=== PATIENT | female | born 1995 | race Caucasian/White ===

== ENCOUNTER 2018-05-23 20:18 | Emergency (ER) | payer OTHER ==
[2018-05-23 22:09] LABS: ABSOLUTE BASOPHILS # (AUTO) 0.1 10^3/uL (0.0-0.2); ABSOLUTE LYMPHOCYTES (AUTO) 2.7 10^3/uL (0.5-4.7); ABSOLUTE MONOCYTES (AUTO) 0.5 10^3/uL (0.1-1.4); ABSOLUTE NEUT (AUTO) 5.9 10^3/uL (1.7-8.2); BASOPHILS % (AUTO) 0.8 % (0-2); EOSINOPHILS % (AUTO) 0.3 % (0-6); HEMATOCRIT 41.4 % (36.0-47.0); HEMOGLOBIN 14.5 g/dL (12.0-15.5); LYMPHOCYTES % (AUTO) 29.3 % (13-45); MEAN CORPUSCULAR HEMOGLOBIN 31.4 pg (27.0-33.4); MEAN CORPUSCULAR HGB CONC 35.1 g/dL (32.0-36.0); MEAN CORPUSCULAR VOLUME 89 fl (80-97); MONOCYTES % (AUTO) 5.2 % (3-13); PLATELET COUNT 221 10^3/uL (150-450); RED BLOOD COUNT 4.63 10^6/uL (3.72-5.28); RED CELL DISTRIBUTION WIDTH 12.2 % (11.5-14.0); SEGMENTED NEUTROPHILS % (AUTO) 64.4 % (42-78); TOTAL CELLS COUNTED % (AUTO) 100 %; WHITE BLOOD COUNT 9.2 10^3/uL (4.0-10.5)
[2018-05-23 22:27] LABS: APPEARANCE,URINE CLOUDY; BILIRUBIN,URINE NEGATIVE (NEGATIVE); COLOR,URINE YELLOW; GLUCOSE, URINE NEGATIVE (NEGATIVE); KETONES,URINE 20 mg/dL (NEGATIVE); LEUKOCYTE ESTERASE,URINE NEGATIVE (NEGATIVE); NITRITE,URINE NEGATIVE (NEGATIVE); PROTEIN,URINE 30 mg/dL (NEGATIVE); URINE SPECIFIC GRAVITY 1.031; UROBILINOGEN,URINE NEGATIVE mg/dL (<2.0)
[2018-05-23 22:44] LABS: ALANINE AMINOTRANSFERASE 26 U/L (9-52); ALBUMIN 4.9 g/dL (3.5-5.0); ALKALINE PHOSPHATASE 43 U/L (38-126); ANION GAP 15 (5-19); ASPARTATE AMINO TRANSFERASE 27 U/L (14-36); BILIRUBIN,DIRECT 0.3 mg/dL (0.0-0.4); BILIRUBIN,TOTAL 0.9 mg/dL (0.2-1.3); BLOOD UREA NITROGEN 13 mg/dL (7-20); CALCIUM 9.8 mg/dL (8.4-10.2); CARBON DIOXIDE 19 mmol/L (22-30); CHLORIDE 111 mmol/L (98-107); GLUCOSE 79 mg/dL (75-110); POTASSIUM 4.1 mmol/L (3.6-5.0); SODIUM 145.4 mmol/L (137-145); TOTAL PROTEIN 7.8 g/dL (6.3-8.2)
--- NOTE | 2018-05-23 22:55 | ER Document Report ---
ED General - General Chief Complaint: Abdominal Pain Stated Complaint: STOMACH PAIN Time Seen by Provider: 05/23/18 21:39 Notes: Patient is a 22-year-old female without past medical history who presents with lower abdominal pain radiating into her rectum and vagina that started just prior to arrival. The patient states that the pain started after having sexual intercourse and has persisted since that time. She describes this as a throbbing, aching, constant pain worsened by standing or moving. Lying flat improves the pain. The patient reports that she has had similar symptoms after sexual intercourse in the past but has never lasted for this long. She denies any vaginal bleeding, vaginal discharge, dysuria, upper abdominal pain or vomiting. She has not seen her general doctor or [employer] regarding today's concerns. She does currently take oral control pills. No history of abdominal surgeries in the past. TRAVEL OUTSIDE OF THE [place] IN LAST 30 DAYS: No - Related Data Allergies/Adverse Reactions: No Known Allergies Allergy (Verified 05/23/18 20:21) Past Medical History - General Information source: Patient - Social History Smoking Status: Never Smoker Frequency of alcohol use: None Drug Abuse: None Lives with: Spouse/Significant other Family History: Reviewed & Not Pertinent Review of Systems - Review of Systems Notes: Constitutional: Negative for fever. HENT: Negative for sore throat. Eyes: Negative for visual changes. Cardiovascular: Negative for chest pain. Respiratory: Negative for shortness of breath. Gastrointestinal: Positive for lower abdominal pain Genitourinary: Positive for vaginal pain Musculoskeletal: Negative for back pain. Skin: Negative for rash. Neurological: Negative for headaches, weakness or numbness. 10 point ROS negative except as marked above and in HPI. Physical Exam - Vital signs Vitals: Temp Pulse Resp BP Pulse Ox 98.5 F 78 18 129/69 H 100 05/23/18 20:30 05/23/18 20:30 05/23/18 20:30 05/23/18 20:30 05/23/18 20:30 Interpretation: Normal Notes: PHYSICAL EXAMINATION: GENERAL: Appears moderately uncomfortable but in no acute distress HEAD: Atraumatic, normocephalic. EYES: Pupils equal round and reactive to light, extraocular movements intact, sclera anicteric, conjunctiva are normal. ENT: nares patent, oropharynx clear without exudates. Moist mucous membranes. NECK: Normal range of motion, supple without lymphadenopathy LUNGS: Breath sounds clear to auscultation bilaterally and equal. No wheezes rales or rhonchi. HEART: Regular rate and rhythm without murmurs ABDOMEN: Soft, mild bilateral adnexal and suprapubic abdominal discomfort but no other localized areas of tenderness, normoactive bowel sounds. No guarding, no rebound. No masses appreciated. EXTREMITIES: Normal range of motion, no pitting or edema. No cyanosis. NEUROLOGICAL: No focal neurological deficits. Moves all extremities spontaneously and on command. PSYCH: Normal mood, normal affect. SKIN: Warm, Dry, normal turgor, no rashes or lesions noted. Course - Re-evaluation Re-evalutation: 05/23/18 22:54 Patient presents with lower abdominal discomfort as well as pain in her vagina and rectum that started while having sexual intercourse. Abdominal examination is notable for mild tenderness to the bilateral adnexas and suprapubic region but is otherwise completely benign. Labs, vitals completely unremarkable. Clinical history appears to be most consistent with a pelvic floor muscle spasm and patient does report that she has had recurrent history of similar symptoms during vaginal intercourse in the past although the pain does not typically last this long. An ovarian cyst with associated rupture would also be a consideration although would not typically expect this to cause of rectal or vaginal pain. Her low clinical suspicion for a torsed ovary given minimal pain at time of presentation as well as patient complaining of the dominance of the pain being in her vagina and rectum. She denies any vaginal bleeding. Will obtain transvaginal ultrasound to further clarify if this remains unremarkable plan for outpatient follow-up with [employer]. 05/24/18 02:10 Transvaginal ultrasound shows trace free pelvic fluid but no evidence of ovarian torsion, ovarian cysts or TOA. Patient's pain has improved after NSAIDs. I have recommended close outpatient follow-up with [employer]. At this time will discharge with return precautions and follow-up recommendations. Verbal discharge instructions given a the bedside and opportunity for questions given. Medication warnings reviewed. Patient is in agreement with this plan and has verbalized understanding of return precautions and the need for primary care follow-up in the next 24-72 hours. - Vital Signs Vital signs: Temp Pulse Resp BP Pulse Ox 97.9 F 57 L 16 125/79 99 05/24/18 02:42 05/24/18 02:42 05/24/18 02:42 05/24/18 02:42 05/24/18 02:42 - Laboratory Result Diagrams: 05/23/18 22:00 05/23/18 22:00 Laboratory results interpreted by me: 05/23/18 05/23/18 22:00 22:10 Sodium 145.4 H Chloride 111 H Carbon Dioxide 19 L Urine Protein 30 H Urine Ketones 20 H - Diagnostic Test Radiology reviewed: Reports reviewed Discharge - Discharge Clinical Impression: Pelvic pain, Lower abdominal pain, Dyspareunia Condition: Good Disposition: HOME, SELF-CARE Additional Instructions: You were seen today for pelvic pain and pain with intercourse. Your ultrasound does not show any acute abnormalities and her labs are otherwise normal. I would avoid having sexual intercourse until you have seen your [employer]. Your symptoms seem to be most consistent with pelvic floor muscle spasms. Please return if you have worsening of your pain, fever, vomiting, heavy vaginal bleeding, vaginal discharge, or any other symptoms that are worrisome to you. For your pain: Take ibuprofen 600 mg and acetaminophen 1000 mg every 6 hours together as needed for pain. Referrals: OSCAR ROBERSON MD [Primary Care Provider] - Follow up as needed
--- NOTE | 2018-05-24 01:52 | RADIOLOGY REPORT (SQ) ---
EXAM DESCRIPTION: CLINICAL HISTORY: 22 years Female bilateral adnexal pain COMPARISON: None. TECHNIQUE: Transvaginal duplex imaging performed to evaluate the pelvis. FINDINGS: Uterus measures 7.4 x 5.5 x 4.8 cm. Endometrial thickness 1.5 cm. Uterus is retroverted. Cervix measures 3.2 cm and appears closed. Right ovary measures 3.8 x 3.1 cm with normal blood flow. Left ovary measures 2.4 x 4.4 cm with normal blood flow. Free fluid in the pelvis. IMPRESSION: Small amount of free fluid which is nonspecific No additional evidence of acute process
[2018-05-24] MEDS ORDERED: ACETAMINOPHEN 325 MG TABLET PO ONE (02:10)
[2018-05-24] MEDS ORDERED: KETOROLAC TROMETHAMINE 60 MG/2 ML SDV IM ONE (02:10)
[2018-05-24 02:46] VITALS: BP 125/79
== END 2018-05-24 02:46 | disposition home or self-care (01) ==
LOC: ER 20:18
DX: N94.10 Unspecified dyspareunia (principal); R18.8 Other ascites; R10.2 Pelvic and perineal pain; K62.89 Other specified diseases of anus and rectum; Z79.3 Long term (current) use of hormonal contraceptives
CPT/HCPCS: 99284; 96372; 36415; 83690; 84703; 85025; 80053; 81001; 76830; 93976; J1885

== ENCOUNTER → 2018-11-14 | Outpatient (CLI) | payer OTHER ==
--- NOTE | 2018-11-14 10:03 | WOMENS IMAGING REPORT ---
EXAM DESCRIPTION: U/S AXILLARY ONLY COMPLETED DATE/TIME: 11/14/2018 9:53 am REASON FOR STUDY: R22.31 R22.31 LOCALIZED SWELLING, MASS AND LUMP, RIGHT UPPER LIMB COMPARISON: None. TECHNIQUE: Dynamic and static grayscale images acquired of the localized site of clinical concern an d recorded on PACS. Additional selected color Doppler and spectral images recorded. SITE OF CONCERN: Right axilla LIMITATIONS: None. FINDINGS: SKIN AND SUBCUTANEOUS TISSUES: Normal size nodes are noted in the right axilla. No focal masses. No fluid collections. DEEP SOFT TISSUES/MUSCLES: No masses. No fluid collections. No edema. VASCULAR: No increased or decreased vascularity. No occlusions. OTHER: No other significant finding. IMPRESSION: Normal appearing nodes in the right axilla. No other significant findings. TECHNICAL DOCUMENTATION: JOB ID: [id number] [employer]- All Rights Reserved Reading location - IP/workstation name: [email or web address]
== END ==
LOC: WI 09:20
PROVIDERS: ATTEND Physician Assistant
DX: R22.31 Localized swelling, mass and lump, right upper limb (principal)
CPT/HCPCS: 76882

== ENCOUNTER 2019-06-08 07:12 | Emergency (ER) | payer OTHER ==
[2019-06-08 07:18] VITALS: BP 151/81
[2019-06-08 08:03] LABS: APPEARANCE,URINE CLEAR; BILIRUBIN,URINE NEGATIVE (NEGATIVE); COLOR,URINE YELLOW; GLUCOSE, URINE NEGATIVE (NEGATIVE); KETONES,URINE NEGATIVE (NEGATIVE); LEUKOCYTE ESTERASE,URINE TRACE (NEGATIVE); NITRITE,URINE NEGATIVE (NEGATIVE); PROTEIN,URINE NEGATIVE (NEGATIVE); URINE SPECIFIC GRAVITY 1.024; UROBILINOGEN,URINE NEGATIVE mg/dL (<2.0)
[2019-06-08] MEDS ORDERED: ACETAMINOPHEN 325 MG TABLET PO ONE (09:27)
--- NOTE | 2019-06-08 09:27 | ER Document Report ---
HPI - HPI Patient complains to provider of: vaginal pain Time Seen by Provider: 06/08/19 09:06 Pain Level: 5 Context: Healthy 23-year-old female presents to the emergency department with chief complaint severe vaginal pain after urinating this morning. Patient states that it was a searing pain and then she inspected the area with a mirror and saw some white spots that look like sores that were concerning to her. Patient said she was fine yesterday. Patient denies any preceding fevers or myalgias, denies any recent illness, denies any shortness of breath or chest pain, denies any abdominal pain, denies nausea/vomiting/diarrhea/constipation, denies any UTI type symptoms, does complain of some abnormal vaginal discharge that is not foul-smelling. No other complaints - REPRODUCTIVE Reproductive: DENIES: : Past Medical History - Social History Smoking Status: Never Smoker Frequency of alcohol use: None Drug Abuse: None Family History: Reviewed & Not Pertinent Patient has suicidal ideation: No Patient has homicidal ideation: No Renal/ Medical History: Denies: Hx Peritoneal Dialysis Vertical Provider Document - CONSTITUTIONAL Notes: PHYSICAL EXAMINATION: Reviewed vital signs and charting by RN GENERAL: Alert, interacts well. No acute distress. HEAD: Normocephalic, atraumatic. EYES: Pupils equal and round. Extraocular movements intact. ENT: Oral mucosa moist, tongue midline. NECK: Full range of motion. Trachea midline. : See course for description of exam ABDOMEN: soft, non-tender. No distention. Bowel sounds present EXTREMITIES: Moves all 4 extremities spontaneously. No edema, No cyanosis. PSYCH: Normal affect, normal mood. SKIN: Warm, dry, normal turgor. No rashes or lesions noted. - INFECTION CONTROL TRAVEL OUTSIDE OF THE [place] IN LAST 30 DAYS: No Course - Re-evaluation Re-evalutation: 06/08/19 11:32 Pelvic exam was performed and there was a lesion on her bilateral inferior labia majora appeared herpetic but a culture was sent for herpes simplex typing to see if it is positive. Also, pelvic exam was performed with driver meANA, as contract technician in the room. Patient was in excruciating pain during speculum exam due to the sores on her labia. The vaginal introitus did not have any lesions and there was no abnormal discharge present. Cervix was visualized and it was pink and nonfriable. A wet mount was obtained and the result was negative. Urinalysis was negative for any UTI. Patient has a very mild leukocytosis. I discussed at length with patient potential for herpes simplex and she was surprised and did not want to initiate treatment at this time and would prefer to wait for the results of the typing. Patient is otherwise well-appearing, vital signs within normal limits, and she is stable for discharge. - Vital Signs Vital signs: Temp Pulse Resp BP Pulse Ox 98.4 F 70 16 151/81 H 98 06/08/19 07:16 06/08/19 07:16 06/08/19 07:16 06/08/19 07:16 06/08/19 07:16 - Laboratory Laboratory results interpreted by me: 06/08/19 07:40 Ur Leukocyte Esterase TRACE H Discharge - Discharge Clinical Impression: Labial pain Condition: Good Disposition: HOME, SELF-CARE Additional Instructions: You were seen in the emergency department this morning for lesions on the bottom portion of your labia majora. It is unclear what they are but we sent out a culture for testing. If you do not hear anything back then it is a benign lesion. If you do get a call back from the culture nurse you will be given further instructions on what to do. Your wet mount was normal and there is no evidence of bacterial vaginosis or yeast infection. Urinalysis was normal. If you continue to have persistent severe pain with urination, you start to notice more sores, you have abnormal vaginal discharge, or you have any other concerning symptoms please merely return to the emergency department. Referrals: OSCAR ROBERSON MD [Primary Care Provider] - Follow up as needed
[2019-06-08] MEDS ORDERED: OXYCODONE HCL IR 5 MG TABLET PO ONE (10:22)
[2019-06-08 10:25] LABS: T.VAGINALIS (WET MOUNT) NO TRICHOMONAS SEEN; WBCS (WET MOUNT) RARE WBCS SEEN; YEAST (WET MOUNT) NO YEAST SEEN
[2019-06-08] MEDS ORDERED: PHENAZOPYRIDINE HCL 200 MG TABLET PO ONE (11:36)
[2019-06-08 11:55] LABS: CHLAM PCR NOT DETECTED (NOT DETECT)
== END 2019-06-08 12:00 | disposition home or self-care (01) ==
LOC: ER 07:12
DX: R10.2 Pelvic and perineal pain (principal); R30.0 Dysuria
CPT/HCPCS: 87210; 81001; 87250; 87491; 87591; J3490; 99283